=== PATIENT | male | born 1980 | race Caucasian/White ===

== ENCOUNTER 2022-10-12 09:53 | Outpatient (CLI) | payer BC, SELFPAY ==
[2022-10-12 11:27] LABS: Albumin* 4.8 g/dL (3.3-5.0)
[2022-10-12 11:30] LABS: Bilirubin Direct* 0.2 mg/dL (0.0-0.5); Bilirubin Total* 0.9 mg/dL (0.1-1.5); Cholesterol* 272 mg/dL (90-199); Total Protein* 7.2 g/dL (6.0-8.3)
[2022-10-12 11:31] LABS: Alanine Aminotransferase* 25 U/L (4-50); Alkaline Phosphatase* 74 U/L (40-150); Aspartate Amino Transferase* 26 U/L (12-35); HDL Cholesterol* 47 mg/dL (>=40); LDL Cholesterol Calculated 187 mg/dL (<100); Triglycerides* 190 mg/dL (40-149)
== END 2022-10-12 09:54 | disposition home or self-care (01) ==
LOC: NFLDREF 09:54
PROVIDERS: PCP Nurse Practitioner Family; Visit Provider Nurse Practitioner Family
DX: E78.5 Hyperlipidemia, unspecified (principal)
CPT/HCPCS: 80061; 80076

== ENCOUNTER 2022-12-18 10:31 | Outpatient (CLI) | payer BC, SELFPAY ==
[2022-12-18 11:36] LABS: Cholesterol* 163 mg/dL (90-199); Triglycerides* 101 mg/dL (40-149)
[2022-12-18 11:37] LABS: HDL Cholesterol* 40 mg/dL (>=40); LDL Cholesterol Calculated 103 mg/dL (<100)
== END 2022-12-18 10:32 | disposition home or self-care (01) ==
LOC: NFLDREF 10:32
PROVIDERS: PCP Nurse Practitioner Family; Visit Provider Nurse Practitioner Family
DX: E78.5 Hyperlipidemia, unspecified (principal)
CPT/HCPCS: 80061

== ENCOUNTER 2024-01-28 10:13 | Outpatient (CLI) | payer OTHER, SELFPAY | END 2024-01-28 10:14 | disposition home or self-care (01) | PROVIDERS: PCP Nurse Practitioner Family; Visit Provider Nurse Practitioner Family | DX: E78.5 Hyperlipidemia, unspecified (principal); Z51.81 Encounter for therapeutic drug level monitoring | CPT/HCPCS: 80053; 80061; 83695 ==

== ENCOUNTER 2024-11-07 08:46 | Outpatient (CLI) | payer OTHER, SELFPAY | END 2024-11-07 08:47 | disposition home or self-care (01) | LOC: KYNREF 08:46 | PROVIDERS: PCP Nurse Practitioner Family; Visit Provider Nurse Practitioner Family | DX: E78.5 Hyperlipidemia, unspecified (principal) | CPT/HCPCS: 80061 ==

== ENCOUNTER 2025-07-05 09:40 | Outpatient (CLI) | payer OTHER, SELFPAY | END 2025-07-05 09:41 | disposition home or self-care (01) | PROVIDERS: PCP Internal Medicine; Visit Provider Internal Medicine | DX: E78.5 Hyperlipidemia, unspecified (principal); N52.9 Male erectile dysfunction, unspecified; Z13.9 Encounter for screening, unspecified | CPT/HCPCS: 80053; 80061; 84146; 84403 ==